=== PATIENT | female | born 2000 | race Caucasian/White ===

== ENCOUNTER 2018-03-26 15:29 | Emergency (ER) | payer MEDICAID ==
[~2018-03-26] VITALS: Ht 165.1 cm; Wt 60.3 kg
[~2018-03-26 15:29] MED LIST: D3 VITAMIN400 IU/ML; HUMI; LANTI SQ; SYN15 PO
[2018-03-26 15:38] VITALS: Ht 165.1 cm; Wt 60.3 kg
[2018-03-26 16:48] LABS: BASOPHIL % 0.8 % (0-2); PLATELET COUNT 296 x10^3mcL (130-400); RED CELL DISTRIBUTION WIDTH 11.5 % (11.5-14.5)
[2018-03-26 17:16] LABS: ALKALINE PHOSPHATASE 125 U/L (46-116); ALT/SGPT 25 U/L (14-59); AST/SGOT 18 U/L (15-37); BILIRUBIN TOTAL 0.58 mg/dL (0.20-1.00); CALCIUM 7.8 mg/dL (8.5-10.1); CARBON DIOXIDE 19.1 mmol/L (21-32); CHLORIDE SERUM 97 mmol/L (98-107); CREATININE SERUM 0.9 mg/dL (0.6-1.0); GFR1 > 60 mL/min; POTASSIUM SERUM 3.9 mmol/L (3.5-5.1); SODIUM SERUM 132 mmol/L (136-145); TOTAL PROTEIN, SERUM 6.5 g/dL (6.4-8.2)
[2018-03-26 17:20] LABS: ALBUMIN 3.3 g/dL (3.4-5.0)
[2018-03-26 17:21] LABS: GLUCOSE SERUM 669 mg/dL (74-106)
[2018-03-26 20:01] LABS: CALCIUM 7.5 mg/dL (8.5-10.1); CARBON DIOXIDE 21.1 mmol/L (21-32); CHLORIDE SERUM 105 mmol/L (98-107); CREATININE SERUM 0.8 mg/dL (0.6-1.0); GFR1 > 60 mL/min; GLUCOSE SERUM 350 mg/dL (74-106); POTASSIUM SERUM 3.2 mmol/L (3.5-5.1); SODIUM SERUM 138 mmol/L (136-145)
[2018-03-26 20:08] VITALS: BP 119/79
== END 2018-03-26 20:08 | disposition home or self-care (01) ==
LOC: ED 15:29
PROVIDERS: Emergency Medicine
PROC: 3E033VG Introduction of Insulin into Peripheral Vein, Percutaneous Approach (ICD-10-PCS; principal; 2018-03-26)
PROC: 3E033GC Introduction of Other Therapeutic Substance into Peripheral Vein, Percutaneous Approach (ICD-10-PCS; 2018-03-26)
DX: E11.65 Type 2 diabetes mellitus with hyperglycemia (principal)
CPT/HCPCS: J7030

== ENCOUNTER 2018-05-17 15:41 | Inpatient (IN) | payer OTHER ==
[~2018-05-17] VITALS: Ht 167.6 cm; Wt 65.1 kg
[2018-05-17 16:06] VITALS: Ht 167.6 cm; Wt 65.1 kg
[2018-05-17 17:18] LABS: BASOPHIL % 0.5 % (0-2); PLATELET COUNT 332 x10^3mcL (130-400); RED CELL DISTRIBUTION WIDTH 11.9 % (11.5-14.5)
[2018-05-17 17:31] LABS: CALCIUM 9.9 mg/dL (8.5-10.1); CARBON DIOXIDE 15.7 mmol/L (21-32); CREATININE SERUM 1.3 mg/dL (0.6-1.0); POTASSIUM SERUM 4.4 mmol/L (3.5-5.1)
[2018-05-17 18:27] LABS: CHOLESTEROL/HDL RATIO 2.7; PHOSPHOROUS 5.7 mg/dL (2.5-4.9)
[2018-05-17 18:32] LABS: T3 TOTAL 0.77 ng/mL
[2018-05-17 18:38] LABS: FREE T4 0.78 ng/dL (0.76-1.46); FREE THYROXINE INDEX 2.1 ug/dL (1.4-4.5); T4(THYROXINE) 6.7 ug/dL (4.7-13.3)
[2018-05-17 20:37] VITALS: BP 107/68
[2018-05-17 22:39] LABS: CALCIUM 8.2 mg/dL (8.5-10.1); CARBON DIOXIDE 12.6 mmol/L (21-32); CHLORIDE SERUM 104 mmol/L (98-107); CREATININE SERUM 0.9 mg/dL (0.6-1.0); GFR1 > 60 mL/min; GLUCOSE SERUM 170 mg/dL (74-106); MAGNESIUM 1.7 mg/dL (1.8-2.4); PHOSPHOROUS 3.6 mg/dL (2.5-4.9); POTASSIUM SERUM 4.2 mmol/L (3.5-5.1); SODIUM SERUM 134 mmol/L (136-145)
[2018-05-17 23:01] VITALS: BP 111/70
[2018-05-18 04:11] VITALS: BP 95/75
[2018-05-18 05:46] LABS: CALCIUM 7.6 mg/dL (8.5-10.1); CARBON DIOXIDE 21.8 mmol/L (21-32); CHLORIDE SERUM 106 mmol/L (98-107); CREATININE SERUM 0.7 mg/dL (0.6-1.0); GFR1 > 60 mL/min; GLUCOSE SERUM 108 mg/dL (74-106); MAGNESIUM 1.4 mg/dL (1.8-2.4); PHOSPHOROUS 3.2 mg/dL (2.5-4.9); POTASSIUM SERUM 3.2 mmol/L (3.5-5.1); SODIUM SERUM 135 mmol/L (136-145)
[2018-05-18 07:34] VITALS: BP 116/74
[2018-05-18 09:07] LABS: CALCIUM 8.3 mg/dL (8.5-10.1); CARBON DIOXIDE 21.1 mmol/L (21-32); CHLORIDE SERUM 103 mmol/L (98-107); CREATININE SERUM 0.8 mg/dL (0.6-1.0); GFR1 > 60 mL/min; GLUCOSE SERUM 190 mg/dL (74-106); MAGNESIUM 1.6 mg/dL (1.8-2.4); PHOSPHOROUS 3.3 mg/dL (2.5-4.9); POTASSIUM SERUM 3.9 mmol/L (3.5-5.1); SODIUM SERUM 134 mmol/L (136-145)
[2018-05-18 11:13] VITALS: BP 121/86
[2018-05-18 13:11] VITALS: BP 113/58
== END 2018-05-18 14:16 | disposition home or self-care (01) | DRG 420 ==
LOC: ED 15:41 → IC 18:42
PROVIDERS: Emergency Medicine; Internal Medicine
DX: E10.10 Type 1 diabetes mellitus with ketoacidosis without coma (principal); N17.0 Acute kidney failure with tubular necrosis; D68.69 Other thrombophilia; E83.39 Other disorders of phosphorus metabolism; E83.42 Hypomagnesemia; E87.1 Hypo-osmolality and hyponatremia; E03.9 Hypothyroidism, unspecified; E78.5 Hyperlipidemia, unspecified; Z79.4 Long term (current) use of insulin; Z91.19 Patient's noncompliance with other medical treatment and regimen; Z68.1 Body mass index [BMI] 19.9 or less, adult
CPT/HCPCS: 36600; 84439; J1815; J3490; J7030

== ENCOUNTER 2018-06-16 07:49 | Emergency (ER) | payer OTHER ==
[~2018-06-16] VITALS: Ht 165.1 cm; Wt 55.3 kg
[2018-06-16 08:00] VITALS: Ht 165.1 cm; Wt 55.3 kg
[2018-06-16 09:49] VITALS: BP 104/69
== END 2018-06-16 09:49 | disposition home or self-care (01) ==
LOC: ED 07:49
DX: M79.671 Pain in right foot (principal); E11.9 Type 2 diabetes mellitus without complications; E08.9 Diabetes mellitus due to underlying condition without complications; Z88.8 Allergy status to other drugs, medicaments and biological substances; Z79.84 Long term (current) use of oral hypoglycemic drugs
CPT/HCPCS: 82962; J1885; J2270; Q0092

== ENCOUNTER 2018-08-06 10:48 | Inpatient (IN) | payer OTHER ==
[~2018-08-06] VITALS: Ht 167.6 cm; Wt 57.2 kg
[2018-08-06 11:32] LABS: BASOPHIL % 0.4 % (0-2); PLATELET COUNT 260 x10^3mcL (130-400); RED CELL DISTRIBUTION WIDTH 12.7 % (11.5-14.5)
[2018-08-06 11:40] LABS: CALCIUM 8.9 mg/dL (8.5-10.1); CARBON DIOXIDE 14.9 mmol/L (21-32); CHLORIDE SERUM 100 mmol/L (98-107); CREATININE SERUM 0.9 mg/dL (0.6-1.0); GFR1 > 60 mL/min; GLUCOSE SERUM 297 mg/dL (74-106); POTASSIUM SERUM 3.7 mmol/L (3.5-5.1); SODIUM SERUM 139 mmol/L (136-145)
[2018-08-06 11:44] LABS: ALBUMIN 3.9 g/dL (3.4-5.0); ALKALINE PHOSPHATASE 132 U/L (46-116); ALT/SGPT 13 U/L (14-59); AST/SGOT 6 U/L (15-37); BILIRUBIN TOTAL 0.64 mg/dL (0.20-1.00)
[2018-08-06 11:46] LABS: TOTAL PROTEIN, SERUM 8.4 g/dL (6.4-8.2)
[2018-08-06 11:54] LABS: T3 TOTAL 0.97 ng/mL
[2018-08-06 11:56] LABS: FREE T4 1.83 ng/dL (0.76-1.46); T4(THYROXINE) 10.5 ug/dL (4.7-13.3)
[2018-08-06 12:37] LABS: UA SPECIFIC GRAVITY 1.025 (1.005-1.035); microscopic required? YES; urine erythrocyte NEGATIVE (NEGATIVE)
[2018-08-06 13:34] LABS: MAGNESIUM 1.7 mg/dL (1.8-2.4); PHOSPHOROUS 3.8 mg/dL (2.5-4.9)
[2018-08-06 13:35] LABS: AMPHETAMINE QUAL UR NONE DETECTED (See below)
[2018-08-06 13:35] LABS: CHOLESTEROL/HDL RATIO 4.3
[2018-08-06 14:33] VITALS: BP 103/78
[2018-08-06 16:28] LABS: CALCIUM 7.7 mg/dL (8.5-10.1); CARBON DIOXIDE 23.5 mmol/L (21-32); CHLORIDE SERUM 105 mmol/L (98-107); CREATININE SERUM 0.9 mg/dL (0.6-1.0); GFR1 > 60 mL/min; GLUCOSE SERUM 299 mg/dL (74-106); MAGNESIUM 1.4 mg/dL (1.8-2.4); PHOSPHOROUS 2.9 mg/dL (2.5-4.9); POTASSIUM SERUM 3.7 mmol/L (3.5-5.1); SODIUM SERUM 141 mmol/L (136-145)
[2018-08-06 19:30] VITALS: BP 107/66
[2018-08-06 20:17] LABS: CALCIUM 7.7 mg/dL (8.5-10.1); CARBON DIOXIDE 23.9 mmol/L (21-32); CHLORIDE SERUM 105 mmol/L (98-107); CREATININE SERUM 0.8 mg/dL (0.6-1.0); GFR1 > 60 mL/min; GLUCOSE SERUM 302 mg/dL (74-106); MAGNESIUM 1.5 mg/dL (1.8-2.4); POTASSIUM SERUM 3.4 mmol/L (3.5-5.1); SODIUM SERUM 138 mmol/L (136-145)
[2018-08-07 00:14] VITALS: BP 115/76
[2018-08-07 00:36] LABS: CALCIUM 8.3 mg/dL (8.5-10.1); CARBON DIOXIDE 22.4 mmol/L (21-32); CHLORIDE SERUM 105 mmol/L (98-107); CREATININE SERUM 0.7 mg/dL (0.6-1.0); GFR1 > 60 mL/min; GLUCOSE SERUM 133 mg/dL (74-106); MAGNESIUM 1.5 mg/dL (1.8-2.4); PHOSPHOROUS 3.3 mg/dL (2.5-4.9); POTASSIUM SERUM 3.3 mmol/L (3.5-5.1); SODIUM SERUM 138 mmol/L (136-145)
[2018-08-07 04:00] VITALS: BP 112/67
[2018-08-07 04:54] LABS: BASOPHIL % 0.3 % (0-2); PLATELET COUNT 220 x10^3mcL (130-400); RED CELL DISTRIBUTION WIDTH 12.5 % (11.5-14.5)
[2018-08-07 05:07] LABS: CALCIUM 7.9 mg/dL (8.5-10.1); CARBON DIOXIDE 25.1 mmol/L (21-32); CHLORIDE SERUM 105 mmol/L (98-107); CREATININE SERUM 0.7 mg/dL (0.6-1.0); GFR1 > 60 mL/min; GLUCOSE SERUM 246 mg/dL (74-106); MAGNESIUM 1.4 mg/dL (1.8-2.4); PHOSPHOROUS 3.6 mg/dL (2.5-4.9); POTASSIUM SERUM 3.3 mmol/L (3.5-5.1); SODIUM SERUM 137 mmol/L (136-145)
[2018-08-07 07:15] VITALS: BP 109/71
[2018-08-07 11:24] VITALS: BP 111/65
[2018-08-07 12:44] VITALS: BP 111/65
== END 2018-08-07 13:10 | disposition home or self-care (01) | DRG 420 ==
LOC: ED 10:48 → IC 12:31
PROVIDERS: Emergency Medicine; Family Medicine
DX: E10.10 Type 1 diabetes mellitus with ketoacidosis without coma (principal); E83.42 Hypomagnesemia; E03.9 Hypothyroidism, unspecified; E87.6 Hypokalemia; E78.5 Hyperlipidemia, unspecified; R00.0 Tachycardia, unspecified; Z79.4 Long term (current) use of insulin
CPT/HCPCS: 36600; 82962; 84439; J1815; J2405; J3475; J3480; J3490; J7030; Q0092

== ENCOUNTER 2018-09-07 13:27 | Inpatient (IN) | payer OTHER ==
[~2018-09-07] VITALS: Ht 167.6 cm; Wt 50.1 kg
[2018-09-07 13:40] VITALS: Ht 167.6 cm; Wt 50.1 kg
[2018-09-07 14:51] LABS: BASOPHIL % 0.4 % (0-2); PLATELET COUNT 299 x10^3mcL (130-400)
[2018-09-07 15:05] LABS: CALCIUM 8.1 mg/dL (8.5-10.1); CARBON DIOXIDE 17.4 mmol/L (21-32); CHLORIDE SERUM 89 mmol/L (98-107); CREATININE SERUM 1.1 mg/dL (0.6-1.0); GFR1 > 60 mL/min; SODIUM SERUM 126 mmol/L (136-145)
[2018-09-07 15:07] LABS: ALKALINE PHOSPHATASE 132 U/L (46-116); ALT/SGPT 18 U/L (14-59); BILIRUBIN TOTAL 0.4 mg/dL (0.20-1.00); TOTAL PROTEIN, SERUM 7.4 g/dL (6.4-8.2)
[2018-09-07 15:10] LABS: ALBUMIN 3.1 g/dL (3.4-5.0)
[2018-09-07 15:12] LABS: GLUCOSE SERUM 709 mg/dL (74-106)
[2018-09-07 15:13] LABS: POTASSIUM SERUM 4.2 mmol/L (3.5-5.1)
[2018-09-07 15:22] LABS: FREE T4 1.04 ng/dL (0.76-1.46); FREE THYROXINE INDEX 2.7 ug/dL (1.4-4.5)
[2018-09-07 15:38] LABS: AST/SGOT 14 U/L (15-37)
[2018-09-07 15:39] LABS: T3 TOTAL 0.41 ng/mL
[2018-09-07 17:28] VITALS: BP 101/71
[2018-09-07 17:29] LABS: CHOLESTEROL 197 mg/dL (<200); CHOLESTEROL/HDL RATIO 5.6; HDL CHOLESTEROL 35 mg/dL (40-60); MAGNESIUM 1.8 mg/dL (1.8-2.4); PHOSPHOROUS 3.4 mg/dL (2.5-4.9)
[2018-09-07 17:35] LABS: TRIGLYCERIDES 1039 mg/dL (<150)
[2018-09-07 18:13] LABS: microscopic required? NO
[2018-09-07 18:23] LABS: urine erythrocyte NEGATIVE (NEGATIVE)
[2018-09-07 19:57] VITALS: BP 105/64
[2018-09-07 20:33] LABS: CALCIUM 7.5 mg/dL (8.5-10.1); CARBON DIOXIDE 20.6 mmol/L (21-32); CHLORIDE SERUM 101 mmol/L (98-107); CREATININE SERUM 0.9 mg/dL (0.6-1.0); GFR1 > 60 mL/min; GLUCOSE SERUM 357 mg/dL (74-106); POTASSIUM SERUM 3.6 mmol/L (3.5-5.1); SODIUM SERUM 133 mmol/L (136-145)
[2018-09-07 20:36] LABS: MAGNESIUM 1.4 mg/dL (1.8-2.4); PHOSPHOROUS 2.4 mg/dL (2.5-4.9)
[2018-09-08 00:22] VITALS: BP 108/82
[2018-09-08 00:39] LABS: CALCIUM 7.7 mg/dL (8.5-10.1); CARBON DIOXIDE 24.7 mmol/L (21-32); CHLORIDE SERUM 102 mmol/L (98-107); CREATININE SERUM 0.9 mg/dL (0.6-1.0); GFR1 > 60 mL/min; GLUCOSE SERUM 202 mg/dL (74-106); POTASSIUM SERUM 3.2 mmol/L (3.5-5.1); SODIUM SERUM 136 mmol/L (136-145)
[2018-09-08 00:44] LABS: MAGNESIUM 1.4 mg/dL (1.8-2.4); PHOSPHOROUS 2.5 mg/dL (2.5-4.9)
[2018-09-08 04:59] LABS: CARBON DIOXIDE 26.7 mmol/L (21-32); CHLORIDE SERUM 105 mmol/L (98-107); CREATININE SERUM 0.7 mg/dL (0.6-1.0); GFR1 > 60 mL/min; GLUCOSE SERUM 62 mg/dL (74-106); POTASSIUM SERUM 3.1 mmol/L (3.5-5.1); SODIUM SERUM 139 mmol/L (136-145)
[2018-09-08 05:11] VITALS: BP 96/68
[2018-09-08 05:17] LABS: MAGNESIUM 1.6 mg/dL (1.8-2.4); PHOSPHOROUS 2.6 mg/dL (2.5-4.9)
[2018-09-08 05:23] LABS: BASOPHIL % 0.6 % (0-2); PLATELET COUNT 268 x10^3mcL (130-400); RED CELL DISTRIBUTION WIDTH 12.1 % (11.5-14.5)
[2018-09-08 07:40] VITALS: BP 104/73
[2018-09-08 11:12] VITALS: BP 104/73
== END 2018-09-08 13:10 | disposition home or self-care (01) | DRG 420 ==
LOC: ED 13:27 → IC 15:51
PROVIDERS: Emergency Medicine; ADMIT Internal Medicine
DX: E10.10 Type 1 diabetes mellitus with ketoacidosis without coma (principal); E44.0 Moderate protein-calorie malnutrition; D68.69 Other thrombophilia; E87.6 Hypokalemia; E78.5 Hyperlipidemia, unspecified; E03.9 Hypothyroidism, unspecified; E31.0 Autoimmune polyglandular failure; Z79.4 Long term (current) use of insulin
CPT/HCPCS: 82962; 84439; 87804; 90658; J1815; J3475; J3480; J7030

== ENCOUNTER 2019-03-15 07:39 | Emergency (ER) | payer OTHER, MEDICAID ==
[~2019-03-15] VITALS: Ht 167.6 cm; Wt 53.5 kg
[2019-03-15 07:49] VITALS: Ht 167.6 cm; Wt 53.5 kg
[2019-03-15 08:09] LABS: BASOPHIL % 0.5 % (0-2); RED CELL DISTRIBUTION WIDTH 12.6 % (11.5-14.5)
[2019-03-15 08:17] LABS: CARBON DIOXIDE 23.5 mmol/L (21-32); CREATININE SERUM 1.3 mg/dL (0.6-1.0); POTASSIUM SERUM 4.4 mmol/L (3.5-5.1)
[2019-03-15 08:22] LABS: ALBUMIN 4.4 g/dL (3.4-5.0); BILIRUBIN TOTAL 0.57 mg/dL (0.20-1.00)
[2019-03-15 08:29] LABS: PLATELET COUNT 437 x10^3mcL (130-400)
[2019-03-15 08:41] LABS: TOTAL PROTEIN, SERUM 9.8 g/dL (6.4-8.2)
[2019-03-15 10:02] VITALS: BP 107/76
== END 2019-03-15 10:10 | disposition home or self-care (01) ==
LOC: ED 07:39
PROVIDERS: Emergency Medicine
DX: R11.2 Nausea with vomiting, unspecified (principal); E86.0 Dehydration; N17.9 Acute kidney failure, unspecified; E05.90 Thyrotoxicosis, unspecified without thyrotoxic crisis or storm
CPT/HCPCS: 82962; J7030

== ENCOUNTER 2019-05-14 03:22 | Inpatient (IN) | payer OTHER ==
[~2019-05-14] VITALS: Ht 165.1 cm; Wt 55.0 kg
[2019-05-14 04:16] LABS: BASOPHIL % 0.4 % (0-2); PLATELET COUNT 386 x10^3mcL (130-400)
[2019-05-14 04:30] LABS: CALCIUM 8.5 mg/dL (8.5-10.1); CHLORIDE SERUM 102 mmol/L (98-107); CREATININE SERUM 1.2 mg/dL (0.6-1.0); GFR1 > 60 mL/min; SODIUM SERUM 146 mmol/L (136-145)
[2019-05-14 04:55] LABS: ALBUMIN 4.4 g/dL (3.4-5.0); ALKALINE PHOSPHATASE 145 U/L (46-116); ALT/SGPT 33 U/L (14-59); AST/SGOT 18 U/L (15-37); BILIRUBIN TOTAL 0.52 mg/dL (0.20-1.00); LIPASE 58 IU/L (73-393)
[2019-05-14 04:56] LABS: TOTAL PROTEIN, SERUM 8.7 g/dL (6.4-8.2)
[2019-05-14 04:58] LABS: CARBON DIOXIDE 2.1 mmol/L (21-32)
[2019-05-14 04:59] LABS: GLUCOSE SERUM 691 mg/dL (74-106)
[2019-05-14 05:46] LABS: UA SPECIFIC GRAVITY 1.025 (1.005-1.035); microscopic required? YES; urine erythrocyte NEGATIVE (NEGATIVE)
[2019-05-14 05:50] LABS: CALCIUM 6.6 mg/dL (8.5-10.1); CHLORIDE SERUM 109 mmol/L (98-107); CREATININE SERUM 0.8 mg/dL (0.6-1.0); GFR1 > 60 mL/min; GLUCOSE SERUM 445 mg/dL (74-106); POTASSIUM SERUM 4.3 mmol/L (3.5-5.1); SODIUM SERUM 152 mmol/L (136-145)
[2019-05-14 05:52] LABS: CARBON DIOXIDE 4.2 mmol/L (21-32)
[2019-05-14 07:05] VITALS: BP 112/70
[2019-05-14 07:30] VITALS: BP 111/62
[2019-05-14 07:58] LABS: CHLORIDE SERUM 106 mmol/L (98-107); GFR1 > 60 mL/min; GLUCOSE SERUM 352 mg/dL (74-106); MAGNESIUM 1.8 mg/dL (1.8-2.4); PHOSPHOROUS 3.3 mg/dL (2.5-4.9); POTASSIUM SERUM 3.7 mmol/L (3.5-5.1); SODIUM SERUM 146 mmol/L (136-145)
[2019-05-14 08:27] LABS: CARBON DIOXIDE 3.5 mmol/L (21-32)
[2019-05-14 11:30] VITALS: BP 101/59
[2019-05-14 12:21] LABS: CALCIUM 6.1 mg/dL (8.5-10.1); CARBON DIOXIDE 15.3 mmol/L (21-32); CHLORIDE SERUM 109 mmol/L (98-107); CREATININE SERUM 0.9 mg/dL (0.6-1.0); GFR1 > 60 mL/min; GLUCOSE SERUM 178 mg/dL (74-106); MAGNESIUM 1.4 mg/dL (1.8-2.4); PHOSPHOROUS 1.7 mg/dL (2.5-4.9); SODIUM SERUM 147 mmol/L (136-145)
[2019-05-14 12:25] LABS: POTASSIUM SERUM 2.9 mmol/L (3.5-5.1)
[2019-05-14 15:55] VITALS: BP 94/49
[2019-05-14 16:12] LABS: CARBON DIOXIDE 16.2 mmol/L (21-32); CHLORIDE SERUM 108 mmol/L (98-107); CREATININE SERUM 0.8 mg/dL (0.6-1.0); GFR1 > 60 mL/min; GLUCOSE SERUM 160 mg/dL (74-106); PHOSPHOROUS 1.3 mg/dL (2.5-4.9); SODIUM SERUM 142 mmol/L (136-145)
[2019-05-14 16:15] LABS: CALCIUM 5.3 mg/dL (8.5-10.1); POTASSIUM SERUM 2.3 mmol/L (3.5-5.1)
[2019-05-14 19:26] VITALS: BP 108/75
[2019-05-14 20:05] LABS: CALCIUM 6.2 mg/dL (8.5-10.1); CARBON DIOXIDE 18.2 mmol/L (21-32); CHLORIDE SERUM 104 mmol/L (98-107); GFR1 > 60 mL/min; GLUCOSE SERUM 208 mg/dL (74-106); MAGNESIUM 1.2 mg/dL (1.8-2.4); PHOSPHOROUS 2.5 mg/dL (2.5-4.9); POTASSIUM SERUM 3.3 mmol/L (3.5-5.1); SODIUM SERUM 140 mmol/L (136-145)
[2019-05-14 23:04] VITALS: BP 115/72
[2019-05-15 00:53] LABS: CALCIUM 6.2 mg/dL (8.5-10.1); CARBON DIOXIDE 19.7 mmol/L (21-32); CHLORIDE SERUM 108 mmol/L (98-107); CREATININE SERUM 0.9 mg/dL (0.6-1.0); GFR1 > 60 mL/min; GLUCOSE SERUM 124 mg/dL (74-106); MAGNESIUM 1.2 mg/dL (1.8-2.4); PHOSPHOROUS 2.1 mg/dL (2.5-4.9); SODIUM SERUM 143 mmol/L (136-145)
[2019-05-15 00:55] LABS: POTASSIUM SERUM 2.7 mmol/L (3.5-5.1)
[2019-05-15 03:30] VITALS: BP 112/71
[2019-05-15 05:15] LABS: BASOPHIL % 0.2 % (0-2); PLATELET COUNT 248 x10^3mcL (130-400)
[2019-05-15 05:23] LABS: CALCIUM 6.6 mg/dL (8.5-10.1); CARBON DIOXIDE 21.9 mmol/L (21-32); CHLORIDE SERUM 110 mmol/L (98-107); CREATININE SERUM 0.8 mg/dL (0.6-1.0); GFR1 > 60 mL/min; GLUCOSE SERUM 118 mg/dL (74-106); MAGNESIUM 1.3 mg/dL (1.8-2.4); PHOSPHOROUS 2.1 mg/dL (2.5-4.9); POTASSIUM SERUM 3.4 mmol/L (3.5-5.1); SODIUM SERUM 143 mmol/L (136-145)
[2019-05-15 07:27] VITALS: BP 91/53
[2019-05-15 07:59] VITALS: Ht 165.1 cm; Wt 55.0 kg
[2019-05-15 08:13] LABS: CALCIUM 6.7 mg/dL (8.5-10.1); CARBON DIOXIDE 23.5 mmol/L (21-32); CHLORIDE SERUM 112 mmol/L (98-107); CREATININE SERUM 0.8 mg/dL (0.6-1.0); GFR1 > 60 mL/min; GLUCOSE SERUM 107 mg/dL (74-106); MAGNESIUM 1.3 mg/dL (1.8-2.4); PHOSPHOROUS 1.9 mg/dL (2.5-4.9); SODIUM SERUM 144 mmol/L (136-145)
[2019-05-15 08:14] LABS: POTASSIUM SERUM 2.8 mmol/L (3.5-5.1)
[2019-05-15 12:00] VITALS: BP 98/73
[2019-05-15 13:16] VITALS: BP 95/59
[2019-05-15 17:40] VITALS: BP 107/69
[2019-05-15 19:21] VITALS: BP 106/71
[2019-05-16 05:05] VITALS: BP 96/57
[2019-05-16 06:31] LABS: BASOPHIL % 0.2 % (0-2); PLATELET COUNT 197 x10^3mcL (130-400); RED CELL DISTRIBUTION WIDTH 12.7 % (11.5-14.5)
[2019-05-16 06:54] LABS: CALCIUM 7.1 mg/dL (8.5-10.1); CARBON DIOXIDE 27.5 mmol/L (21-32); CHLORIDE SERUM 111 mmol/L (98-107); CREATININE SERUM 0.7 mg/dL (0.6-1.0); GFR1 > 60 mL/min; GLUCOSE SERUM 146 mg/dL (74-106); MAGNESIUM 1.8 mg/dL (1.8-2.4); SODIUM SERUM 147 mmol/L (136-145)
[2019-05-16 06:59] LABS: POTASSIUM SERUM 2.6 mmol/L (3.5-5.1)
[2019-05-16 10:09] VITALS: BP 103/70
[2019-05-16 12:45] VITALS: BP 111/76
[2019-05-16 17:42] VITALS: BP 120/84
[2019-05-16 20:21] VITALS: BP 108/76
[2019-05-17 06:02] VITALS: BP 121/89
[2019-05-17 06:30] LABS: BASOPHIL % 0.4 % (0-2); PLATELET COUNT 200 x10^3mcL (130-400); RED CELL DISTRIBUTION WIDTH 12.6 % (11.5-14.5)
[2019-05-17 06:45] LABS: CALCIUM 8.6 mg/dL (8.5-10.1); CHLORIDE SERUM 108 mmol/L (98-107); CREATININE SERUM 0.6 mg/dL (0.6-1.0); GFR1 > 60 mL/min; GLUCOSE SERUM 113 mg/dL (74-106); POTASSIUM SERUM 3.7 mmol/L (3.5-5.1); SODIUM SERUM 145 mmol/L (136-145)
[2019-05-17 08:04] VITALS: BP 101/76
[2019-05-17] MEDS ORDERED: BASAGLAR K100 UNIT/1 SQ (10:17)
[2019-05-17 10:23] VITALS: BP 101/76
== END 2019-05-17 11:31 | disposition home or self-care (01) | DRG 420 ==
LOC: ED 03:22 → DU 05:19 → IC 05:19 → MU 05-15 13:22 → DU 05-15 17:18
PROVIDERS: Emergency Medicine; Internal Medicine; ADMIT Internal Medicine
DX: E10.10 Type 1 diabetes mellitus with ketoacidosis without coma (principal); G93.41 Metabolic encephalopathy; E83.39 Other disorders of phosphorus metabolism; E83.42 Hypomagnesemia; E83.51 Hypocalcemia; R06.82 Tachypnea, not elsewhere classified; E87.6 Hypokalemia; E03.9 Hypothyroidism, unspecified; Z79.4 Long term (current) use of insulin; Z91.14 Patient's other noncompliance with medication regimen
CPT/HCPCS: 36600; 82962; C9113; G0378; G0480; J0610; J1815; J2001; J2405; J2765; J3475; J3480; J3490; J7030; J7050

== ENCOUNTER 2019-05-22 09:00 | Emergency (ER) | payer OTHER ==
[~2019-05-22] VITALS: Ht 167.6 cm; Wt 58.5 kg
[~2019-05-22 09:00] MED LIST changes: +BASAGLAR K100 UNIT/1 SQ
[2019-05-22 09:13] VITALS: Ht 167.6 cm; Wt 58.5 kg
[2019-05-22 10:44] VITALS: BP 121/72
== END 2019-05-22 10:44 | disposition home or self-care (01) ==
LOC: ED 09:00
DX: M79.671 Pain in right foot (principal); E05.90 Thyrotoxicosis, unspecified without thyrotoxic crisis or storm; E11.9 Type 2 diabetes mellitus without complications; Z88.8 Allergy status to other drugs, medicaments and biological substances

== ENCOUNTER 2019-11-05 22:19 | Inpatient (IN) | payer OTHER ==
[~2019-11-05] VITALS: Ht 167.6 cm; Wt 51.0 kg
[2019-11-06] VITALS (11 sets, daily range): BP systolic 80–117; BP diastolic 35–76; Ht 167.6 cm; Wt 51.0 kg
[2019-11-06 01:55] LABS: BASOPHIL % 0.1 % (0-2); PLATELET COUNT 327 x10^3mcL (130-400)
[2019-11-06 02:09] LABS: ALBUMIN 3.8 g/dL (3.4-5.0); ALKALINE PHOSPHATASE 72 U/L (46-116); ALT/SGPT 22 U/L (14-59); AST/SGOT 18 U/L (15-37); BILIRUBIN TOTAL 0.73 mg/dL (0.20-1.00); CALCIUM 9.1 mg/dL (8.5-10.1); CHLORIDE SERUM 96 mmol/L (98-107); GFR1 > 60 mL/min; MAGNESIUM 1.9 mg/dL (1.8-2.4); POTASSIUM SERUM 5.5 mmol/L (3.5-5.1); SODIUM SERUM 132 mmol/L (136-145); TOTAL PROTEIN, SERUM 7.2 g/dL (6.4-8.2)
[2019-11-06 02:15] LABS: GLUCOSE SERUM 638 mg/dL (74-106)
[2019-11-06 03:23] LABS: microscopic required? NO
[2019-11-06] MEDS ORDERED: SYNTHROID0.175 MG PO (03:30)
[2019-11-06 03:43] LABS: AMPHETAMINE QUAL UR NONE DETECTED (See below)
[2019-11-06 04:12] LABS: urine erythrocyte NEGATIVE (NEGATIVE)
[2019-11-06 06:28] LABS: BASOPHIL % 0.2 % (0-2)
[2019-11-06 06:35] LABS: PLATELET COUNT 222 x10^3mcL (130-400)
[2019-11-06 06:43] LABS: T3 TOTAL 0.82 ng/mL
[2019-11-06 06:48] LABS: FREE T4 2.12 ng/dL (0.76-1.46); FREE THYROXINE INDEX 4.7 ug/dL (1.4-4.5); T4(THYROXINE) 12.1 ug/dL (4.7-13.3)
[2019-11-06 07:04] LABS: CHLORIDE SERUM 105 mmol/L (98-107); POTASSIUM SERUM 4.6 mmol/L (3.5-5.1); SODIUM SERUM 137 mmol/L (136-145)
[2019-11-06 07:05] LABS: CALCIUM 8.2 mg/dL (8.5-10.1); CARBON DIOXIDE 11.2 mmol/L (21-32); GFR1 > 60 mL/min; GLUCOSE SERUM 422 mg/dL (74-106); MAGNESIUM 1.9 mg/dL (1.8-2.4)
[2019-11-06 11:37] LABS: CALCIUM 7.8 mg/dL (8.5-10.1); CARBON DIOXIDE 16.7 mmol/L (21-32); CHLORIDE SERUM 110 mmol/L (98-107); CREATININE SERUM 0.9 mg/dL (0.6-1.0); GFR1 > 60 mL/min; GLUCOSE SERUM 236 mg/dL (74-106); MAGNESIUM 1.6 mg/dL (1.8-2.4); PHOSPHOROUS 2.8 mg/dL (2.5-4.9); SODIUM SERUM 140 mmol/L (136-145)
[2019-11-06 17:01] LABS: CALCIUM 7.9 mg/dL (8.5-10.1); CARBON DIOXIDE 22.2 mmol/L (21-32); CHLORIDE SERUM 110 mmol/L (98-107); CREATININE SERUM 0.8 mg/dL (0.6-1.0); GFR1 > 60 mL/min; GLUCOSE SERUM 200 mg/dL (74-106); MAGNESIUM 1.6 mg/dL (1.8-2.4); PHOSPHOROUS 3.7 mg/dL (2.5-4.9); POTASSIUM SERUM 4.3 mmol/L (3.5-5.1); SODIUM SERUM 139 mmol/L (136-145)
[2019-11-06 20:27] LABS: CALCIUM 7.7 mg/dL (8.5-10.1); CARBON DIOXIDE 22.3 mmol/L (21-32); CHLORIDE SERUM 110 mmol/L (98-107); CREATININE SERUM 0.7 mg/dL (0.6-1.0); GFR1 > 60 mL/min; GLUCOSE SERUM 156 mg/dL (74-106); MAGNESIUM 1.6 mg/dL (1.8-2.4); PHOSPHOROUS 3.5 mg/dL (2.5-4.9); POTASSIUM SERUM 3.7 mmol/L (3.5-5.1); SODIUM SERUM 139 mmol/L (136-145)
[2019-11-07 01:19] LABS: CALCIUM 7.8 mg/dL (8.5-10.1); CARBON DIOXIDE 21.7 mmol/L (21-32); CHLORIDE SERUM 106 mmol/L (98-107); CREATININE SERUM 0.7 mg/dL (0.6-1.0); GFR1 > 60 mL/min; GLUCOSE SERUM 299 mg/dL (74-106); MAGNESIUM 1.5 mg/dL (1.8-2.4); PHOSPHOROUS 3.1 mg/dL (2.5-4.9); POTASSIUM SERUM 4.5 mmol/L (3.5-5.1); SODIUM SERUM 139 mmol/L (136-145)
[2019-11-07 03:04] VITALS: BP 100/49
[2019-11-07 05:49] LABS: CALCIUM 8.1 mg/dL (8.5-10.1); CARBON DIOXIDE 14.8 mmol/L (21-32); CHLORIDE SERUM 105 mmol/L (98-107); CREATININE SERUM 0.9 mg/dL (0.6-1.0); GFR1 > 60 mL/min; MAGNESIUM 1.6 mg/dL (1.8-2.4); PHOSPHOROUS 2.7 mg/dL (2.5-4.9); POTASSIUM SERUM 3.8 mmol/L (3.5-5.1); SODIUM SERUM 139 mmol/L (136-145)
[2019-11-07 05:53] LABS: GLUCOSE SERUM 477 mg/dL (74-106)
[2019-11-07 07:05] LABS: BASOPHIL % 0.3 % (0-2); PLATELET COUNT 281 x10^3mcL (130-400)
[2019-11-07 07:20] LABS: RED CELL DISTRIBUTION WIDTH 11.4 % (11.5-14.5)
[2019-11-07 08:00] VITALS: BP 95/50
[2019-11-07 08:53] LABS: CALCIUM 7.7 mg/dL (8.5-10.1); CARBON DIOXIDE 19.4 mmol/L (21-32); CHLORIDE SERUM 111 mmol/L (98-107); CREATININE SERUM 0.7 mg/dL (0.6-1.0); GFR1 > 60 mL/min; GLUCOSE SERUM 242 mg/dL (74-106); MAGNESIUM 1.5 mg/dL (1.8-2.4); PHOSPHOROUS 2.2 mg/dL (2.5-4.9); POTASSIUM SERUM 3.4 mmol/L (3.5-5.1); SODIUM SERUM 143 mmol/L (136-145)
[2019-11-07 16:24] VITALS: BP 104/72
[2019-11-07 21:41] VITALS: BP 100/66
[2019-11-08 05:27] VITALS: BP 99/66
[2019-11-08 06:42] LABS: CALCIUM 7.6 mg/dL (8.5-10.1); CARBON DIOXIDE 25.5 mmol/L (21-32); CHLORIDE SERUM 109 mmol/L (98-107); CREATININE SERUM 0.6 mg/dL (0.6-1.0); GFR1 > 60 mL/min; GLUCOSE SERUM 340 mg/dL (74-106); MAGNESIUM 1.5 mg/dL (1.8-2.4); PHOSPHOROUS 3.6 mg/dL (2.5-4.9); POTASSIUM SERUM 4.4 mmol/L (3.5-5.1); SODIUM SERUM 143 mmol/L (136-145)
[2019-11-08 07:32] LABS: BASOPHIL % 0.4 % (0-2); PLATELET COUNT 216 x10^3mcL (130-400)
[2019-11-08 07:36] LABS: RED CELL DISTRIBUTION WIDTH 11.1 % (11.5-14.5)
[2019-11-08 07:59] VITALS: BP 106/72
[2019-11-08] MEDS ORDERED: BG FS (11:58)
[2019-11-08] MEDS ORDERED: HUMULIN R100 U/1 M1 SC (11:58)
[2019-11-08 12:00] VITALS: BP 122/76
[2019-11-08] MEDS ORDERED: TAM75 PO (12:06)
[2019-11-08 12:34] VITALS: BP 122/76
== END 2019-11-08 13:48 | disposition home or self-care (01) | DRG 813 ==
LOC: ED 22:19 → IC 11-06 02:49 → DU 11-07 12:38
PROVIDERS: Emergency Medicine; Internal Medicine; ADMIT Family Medicine
DX: T85.694A Other mechanical complication of insulin pump, initial encounter (principal); E43 Unspecified severe protein-calorie malnutrition; E10.10 Type 1 diabetes mellitus with ketoacidosis without coma; R65.10 Systemic inflammatory response syndrome (SIRS) of non-infectious origin without acute organ dysfunction; E87.8 Other disorders of electrolyte and fluid balance, not elsewhere classified; E87.5 Hyperkalemia; E87.1 Hypo-osmolality and hyponatremia; T38.3X6A Underdosing of insulin and oral hypoglycemic [antidiabetic] drugs, initial encounter; F41.0 Panic disorder [episodic paroxysmal anxiety]; E03.9 Hypothyroidism, unspecified; F32.9 Major depressive disorder, single episode, unspecified; Z79.4 Long term (current) use of insulin; Z96.41 Presence of insulin pump (external) (internal); Z68.1 Body mass index [BMI] 19.9 or less, adult; Z88.8 Allergy status to other drugs, medicaments and biological substances; Z83.3 Family history of diabetes mellitus; Y92.009 Unspecified place in unspecified non-institutional (private) residence as the place of occurrence of the external cause
CPT/HCPCS: 36600; 82962; 83880; 84439; 87804; 90658; G0378; J1815; J2405; J2765; J7030; Q0092